=== PATIENT | female | born 1970 | race Caucasian/White ===

== ENCOUNTER 2016-05-29 06:25 | Day surgery (SDC) | payer OTHER ==
[2016-05-28 10:36] VITALS: BMI 27.0
[2016-05-29] VITALS (9 sets, daily range): BP systolic 117–131; BP diastolic 63–73; PULSE 50–76; RESP 14–18; Ht 167.6 cm; Wt 73.0 kg
[~2016-05-29] VITALS: Ht 167.6 cm; Wt 73.0 kg
[2016-05-29] MEDS ORDERED: CEFAZOLIN 1 GM INJ ONE (07:00)
[2016-05-29] MEDS ORDERED: ONDANSETRON 4 MG INJ ONE (07:00)
[2016-05-29] MEDS ORDERED: PROPOFOL 200 MG INJ ONE (07:00)
[2016-05-29] MEDS ORDERED: MIDAZOLAM 1 MG/ML 2 ML INJ ONE (07:00)
[2016-05-29] MEDS ORDERED: NEOSTIGMINE 3 MG/3 ML SYRINGE ONE (07:00)
[2016-05-29] MEDS ORDERED: FENTAnyl 250MCG INJ ONE (07:00)
[2016-05-29] MEDS ORDERED: ROCURONIUM 50 MG INJ ONE (07:00)
[2016-05-29] MEDS ORDERED: LIDOCAINE 2% (SDV) 5 ML INJ ONE (07:00)
[2016-05-29] MEDS ORDERED: GLYCOPYRROLATE 0.4 MG INJ ONE (07:00)
--- NOTE | 2016-05-29 08:38 | HPN ---
Date/Time of Note Date/Time of Note DATE: 05/29/16 TIME: 08:37 Interval H&P Admission Note Pt. seen H&P reviewed: No system changes TAMIKO MARCH MD May 29, 2016 08:38
[2016-05-29 08:42] LABS: ADD UMIC YES; URINE BILIRUBIN (Dip) NEGATIVE (NEGATIVE); URINE BLOOD (Dip) 3+ (NEGATIVE); URINE COLOR LT. YELLOW (YELLOW); URINE GLUCOSE (Dip) NEGATIVE (NEGATIVE); URINE KETONES (Dip) NEGATIVE (NEGATIVE); URINE LEUKOCYTE ESTERASE (Dip) 2+ (NEGATIVE); URINE NITRITE (Dip) NEGATIVE (NEGATIVE); URINE TOTAL PROTEIN (Dip) TRACE (NEGATIVE); URINE UROBILINOGEN (Dip) 0.2 E.U./dL (0.1-1.0)
[2016-05-29] MEDS ORDERED: BUPIVACAINE 0.25%/EPI (SDV) 30 ML INJ ONE (08:52)
[2016-05-29 08:58] LABS: BACTERIA,URINE FEW
[2016-05-29] MEDS ORDERED: BUPIVACAINE 0.25%/EPI (SDV) 30 ML INJ INJ ONE (09:00)
[2016-05-29] MEDS ORDERED: morphine (1 MG/ML) 10ML SYRINGE IV PRN (09:30)
[2016-05-29] MEDS ORDERED: ONDANSETRON 4 MG INJ IV PRN ×2 (09:30→10:00)
[2016-05-29] MEDS ORDERED: MEPERIDINE 25 MG INJ IV PRN (09:30)
[2016-05-29] MEDS ORDERED: DIPHENHYDRAMINE 50 MG INJ IV PRN (09:30)
[2016-05-29] MEDS ORDERED: OXYCODONE/ACETAMINOPHEN (5/325) TAB PO PRN ×2 (10:00)
[2016-05-29] MEDS ORDERED: morphine 2 MG INJ IV PRN (10:00)
[2016-05-29] MEDS: FENTAnyl 50 MCG/ML VIAL IV PRN ×2 (10:08→10:20)
--- NOTE | 2016-05-29 11:03 | RADRPT ---
Vent Rate: 48 bpm RR Interval: 0 msec AR Interval: 168 msec QRS Duration: 88 msec QT Interval: 446 msec QTC Interval: 398 msec P-R-T [place]: 62 - 74 - 67 degrees Marked sinus bradycardia Abnormal ECG Electronically Signed By: Link Horan [id number]
--- NOTE | 2016-05-29 11:25 | OPR ---
DATE OF OPERATION: 05/29/2016 PREOPERATIVE DIAGNOSIS: Gallstones without obstruction. POSTOPERATIVE DIAGNOSIS: Gallstones without obstruction. OPERATION PERFORMED: Laparoscopic cholecystectomy. SURGEON: TAMIKO MARCH MD ANESTHESIA: General. ANESTHESIOLOGIST: Tramaine Becker MD OPERATIVE REPORT: After satisfactory general anesthesia was achieved, the abdomen was prepped and d raped in the usual fashion. The abdomen was insufflated with carbon dioxide through an umbilical Ve ress needle to 15 mmHg pressure. The Veress needle was removed and the umbilical incision extended to 5 mm, through which a 5 mm trocar was placed. A 5-mm, 0-degree lens was placed. Laparoscopy was entirely unremarkable. Under direct visualization, a 12 mm epigastric trocar was placed as well as two 5 mm right lateral abdominal trocars. The dome of the gallbladder was grasped and retracted barragan periorly. Grace pouch was retracted inferiorly. The hepatoduodenal ligament was carefully disse cted between the gallbladder and the extremely well visualized common bile duct. The cystic duct wa s dissected and then triply hemoclipped high at the junction of the gallbladder and the cystic duct. The cystic artery was identified immediately posteriorly. This was triply hemoclipped and divided . The gallbladder was then dissected from below using electrocautery dissection and placed fully in tact into an EndoCatch, removed via the epigastric route. Hemostasis of the liver bed was total and irrigant returned clear. The abdomen was then desufflated and the trocars were removed. The fasci a of the epigastrium was closed with a single suture of 0 Vicryl. Skin punctures were infiltrated w ith 30 mL of 0.25% plain Marcaine and closed with lyssa. Operative blood loss less than 10 mL. S ponge and needle counts reported as correct x2. The patient tolerated the procedure well and without incident or complication. Dictated By: TAMIKO MARCH MD AR/NTS Conf#: [id number] DID#: [id number] CC: Ned Bender;*EndCC*
== END 2016-05-29 11:50 | disposition home or self-care (01) ==
LOC: SDS 06:25 → EDBD 09:00 → SDS 11:50
PROVIDERS: ATTEND Surgery
DX: K80.10 Calculus of gallbladder with chronic cholecystitis without obstruction (principal); E66.9 Obesity, unspecified; Z68.26 Body mass index [BMI] 26.0-26.9, adult
CPT/HCPCS: 47562; 81001; 84703; 88304; 93005; J0690; J2175; J2250; J2405; J2710; J3010; Z7512; Z7610; 81003